=== PATIENT | male | born 1950 | race African-American/Black ===

== ENCOUNTER 2022-03-06 16:52 | Emergency (ER) | payer MEDICARE, MEDICAID ==
[~2022-03-06] VITALS: Ht 182.9 cm; Wt 104.0 kg
[~2022-03-06 16:52] MED LIST: LISI2.5T47 PO
[2022-03-06] MEDS ORDERED: KETOROLAC 30MG/ML VIAL IV STA (18:13)
[2022-03-06] MEDS ORDERED: SODIUM CHLORIDE 0.9% 1,000 ML IV ONE (18:15)
[2022-03-06] MEDS ORDERED: AMLODIPINE 5MG TABLET PO ONE (18:30)
[2022-03-06 20:00] LABS: HEMATOCRIT. 40.2 % (42.0-52.0); HEMOGLOBIN. 13.3 g/dL (14.0-18.0); MEAN CORPUSCULAR HEMOGLOBIN 27.5 pg (28.0-32.0); MEAN CORPUSCULAR VOLUME 83.1 fL (80.0-94.0); MEAN PLATELET VOLUME 8.2 fl (7.4-10.4); PLATELET 201 x1000/uL (130-400); RED BLOOD CELL COUNT 4.84 mill/uL (4.7-6.1); RED CELL DISTRIBUTION WIDTH 14.9 % (11.6-14.6)
[2022-03-06 20:03] LABS: CHLORIDE 106 mEq/L (98-107)
[2022-03-06 21:07] LABS: PLATELET ESTIMATE NORMAL
[2022-03-06] MEDS ORDERED: TRAM50TA3 MT (21:08)
[2022-03-06] MEDS ORDERED: KETOROLAC 60MG/2ML VIAL IM ONE (21:15)
[2022-03-06 21:18] VITALS: BP 135/86
[2022-03-06 21:51] LABS: CLARITY URINE CLEAR (CLEAR); COLOR URINE YELLOW (YELLOW); KETONES URINE NEGATIVE (NEGATIVE); LEUKOCYTE ESTERASE URINE NEGATIVE (NEGATIVE); NITRITE URINE NEGATIVE (NEGATIVE); OCCULT BLOOD URINE NEGATIVE (NEGATIVE); PROTEIN URINE NEGATIVE (NEGATIVE); SPECIFIC GRAVITY URINE 1.015 (1.005-1.030); UROBILINOGEN URINE 0.2 E.U./dL (0.2-1.0)
== END 2022-03-06 21:34 | disposition home or self-care (01) ==
LOC: ER 16:52
DX: R42 Dizziness and giddiness (principal); M25.551 Pain in right hip; M25.561 Pain in right knee; R51.9 Headache, unspecified; I10 Essential (primary) hypertension; E11.9 Type 2 diabetes mellitus without complications; Z87.828 Personal history of other (healed) physical injury and trauma; Z86.19 Personal history of other infectious and parasitic diseases; Z98.890 Other specified postprocedural states
CPT/HCPCS: 36415; 70450; 71045; 73502; 73552; 73560; 80053; 81003; 83880; 84484; 85025; 87086; 93005; 96372; 99285; J1885; J7030